=== PATIENT | male | born 1950 | race Caucasian/White ===

== ENCOUNTER → 2018-07-21 | Outpatient (CLI) | payer MEDICARE | END | disposition home or self-care (01) | LOC: CFH 08:18 | PROVIDERS: ATTEND Radiology Diagnostic Radiology | DX: Z13.820 Encounter for screening for osteoporosis (principal); M85.88 Other specified disorders of bone density and structure, other site; I35.8 Other nonrheumatic aortic valve disorders | CPT/HCPCS: 77080; 93306 ==

== ENCOUNTER 2021-05-13 10:32 | Emergency (ER) | payer MEDICARE ==
[~2021-05-13] VITALS: Ht 182.9 cm; Wt 98.1 kg
--- NOTE | 2021-05-13 12:09 | NUR ---
PT AMBULATED TO ROOM FROM [facility] W/ A STEADY GAIT AT THIS TIME.
--- NOTE | 2021-05-13 12:14 | NUR ---
PT TO XR.
--- NOTE | 2021-05-13 12:48 | NUR ---
report received from puja rn, pt care transferred at this time. pt nad, waiting for rad result. Patient is resting comfortably in bed. Bed in lowest, rails engaged, call light on lap. TM.
[2021-05-13 14:05] VITALS: BP 136/81
--- NOTE | 2021-05-13 14:06 | NUR ---
Patient given discharge instructions and they have confirmed that they understand the instructions. Patient ambulatory with steady gait. NAD, all questions answered appropriately, denies additional needs at this time. No personal belongings left in room after discharge.
== END 2021-05-13 14:07 | disposition home or self-care (01) ==
LOC: ED 12:47
DX: S06.0X0A Concussion without loss of consciousness, initial encounter (principal); S80.01XA Contusion of right knee, initial encounter; W18.30XA Fall on same level, unspecified, initial encounter; Y93.89 Activity, other specified; Y92.009 Unspecified place in unspecified non-institutional (private) residence as the place of occurrence of the external cause; Y99.8 Other external cause status
CPT/HCPCS: 70450; 72125; 99285